=== PATIENT | male | born 2005 | race Native Hawaiian/Other Pacific Islander ===

== ENCOUNTER 2024-10-22 02:28 | Emergency (ER) | payer OTHER ==
[2024-10-22 02:34] VITALS: TEMP 97.4
[2024-10-22] MEDS ORDERED: TETRACAINE 0.5% STERI-UNIT SOL OP ONE (02:45)
[2024-10-22] MEDS ORDERED: Fluor-I-Strip/Ful-Flo OP ONE (02:45)
[2024-10-22] MEDS: Fluor-I-Strip/Ful-Flo OP ONE (02:48)
[2024-10-22] MEDS: TETRACAINE 0.5% STERI-UNIT SOL OP STA (02:48)
[2024-10-22] MEDS ORDERED: GARAMYCIN 0.3% OPHTH SOL ONE (03:11)
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
[2024-10-22] MEDS: GARAMYCIN 0.3% OPHTH SOL OP ONE (03:18)
[2024-10-22 03:25] VITALS: BP 112/77; PULSE 70; RESP 18; O2SAT 98
== END 2024-10-22 03:33 | disposition home or self-care (01) ==
LOC: ED 02:28
DX: H16.132 Photokeratitis, left eye (principal); W89.0XXA Exposure to welding light (arc), initial encounter
CPT/HCPCS: 99283; A9270-GY